=== PATIENT | male | born 1950 | race African-American/Black ===

== ENCOUNTER 2018-04-12 15:00 | Emergency (ER) | payer OTHER ==
[~2018-04-12] VITALS: Ht 175.3 cm; Wt 76.8 kg
[2018-04-12 15:16] VITALS: BP 132/74; PULSE 77; RESP 18; TEMP 98; O2SAT 100
[2018-04-12] MEDS ORDERED: RISP2TAB37 PO (15:29)
[2018-04-12 15:59] LABS: AUTOMATED NEUTROPHIL # 3.3 TH/MM3 (1.8-7.7); BASOPHIL % 0.3 % (0.0-2.0); EOSINOPHIL # 0.1 TH/MM3 (0-0.4); HEMATOCRIT 34.2 % (39.0-51.0); HEMOGLOBIN 11.6 GM/DL (13.0-17.0); LYMPH % 32.4 % (9.0-44.0); LYMPHOCYTE # 1.9 TH/MM3 (1.0-4.8); MEAN CELL VOLUME 82.2 FL (80.0-100.0); MEAN CORPUSCULAR HEMOGLOBIN 27.9 PG (27.0-34.0); MEAN CORPUSCULAR HGB CONC 33.9 % (32.0-36.0); MEAN PLATELET VOLUME 6.2 FL (7.0-11.0); MONO % 9.3 % (0.0-8.0); MONOCYTE # 0.5 TH/MM3 (0-0.9); PLATELET COUNT 311 TH/MM3 (150-450); RED BLOOD COUNT 4.16 MIL/MM3 (4.50-5.90); RED CELL DISTRIBUTION WIDTH 13.4 % (11.6-17.2); WHITE BLOOD COUNT 5.9 TH/MM3 (4.0-11.0)
[2018-04-12 16:17] LABS: ALBUMIN 3.6 GM/DL (3.4-5.0); ALT (GPT) 42 U/L (12-78); AST (GOT) 26 U/L (15-37); BICARBONATE 26.1 MEQ/L (21.0-32.0); BLOOD UREA NITROGEN 31 MG/DL (7-18); CHLORIDE 104 MEQ/L (98-107); CREATININE 1.47 MG/DL (0.60-1.30); GLOMERULAR FILTRATION RATE 58 ML/MIN (>89); GLUCOSE,RANDOM 144 MG/DL (74-106); SODIUM (NA) 138 MEQ/L (136-145)
[2018-04-12 16:27] LABS: ALKALINE PHOSPHATASE 91 U/L (45-117); TOTAL BILIRUBIN ADULT 0.3 MG/DL (0.2-1.0); TOTAL PROTEIN 7.8 GM/DL (6.4-8.2)
[2018-04-12] MEDS ORDERED: AMLO5TAB2 PO (16:31)
[2018-04-12] MEDS ORDERED: GLIM4TAB PO (16:31)
[2018-04-12] MEDS ORDERED: LOSA50TA PO (16:31)
[2018-04-12] MEDS ORDERED: ATOR40TA16 PO (16:31)
--- NOTE | 2018-04-12 17:10 | PD ---
HPI Chief Complaint: Psychiatric Symptoms Time Seen by Provider: 15:20 Travel History International Travel<30 days: No Contact w/Intl Traveler<30days: No Traveled to known affect area: No History of Present Illness HPI 68 YO M presents to the ED for voluntary psychiatric evaluation. Patient states "I am pretty sure I have a mental illness." He is A and O 4. He denies any somatic complaints. He denies suicidal or homicidal ideation. He denies auditory or visual hallucinations. Apparently the patient was being seen at [facility] but was sent to the ED for evaluation due to an episode of fecal incontinence. [facility] states the patient is beyond the scope of care. PFSH Past Medical History Medical History: Unable to Obtain Psychiatric: Yes Tetanus Vaccination: < 5 Years Past Surgical History Surgical History: Unable to Obtain Social History Alcohol Use: No Tobacco Use: No Substance Use: No () Allergies-Medications (Allergen,Severity, Reaction): Coded Allergies: No Known Allergies (Unverified , 04/12/18) Reported Meds & Prescriptions Reported Meds & Active Scripts Active Reported Atorvastatin (Atorvastatin Calcium) 40 Mg Tab 40 Mg PO HS Losartan (Losartan Potassium) 50 Mg Tab 50 Mg PO DAILY Glimepiride 4 Mg Tab 4 Mg PO DAILY Take with breakfast or first main meal Amlodipine (Amlodipine Besylate) 5 Mg Tab 5 Mg PO DAILY Risperdal (Risperidone) 2 Mg Tab 2 Mg PO Q12HR Review of Systems Except as stated in HPI: all other systems reviewed are Neg Physical Exam Narrative GENERAL: Well-nourished, well-developed -[place] male no acute distress. PSYCH: Anxious, cooperative. SKIN: Focused skin assessment warm/dry. HEAD: Normocephalic. EYES: No scleral icterus. No injection or drainage. NECK: Supple, trachea midline. No JVD or lymphadenopathy. CARDIOVASCULAR: Regular rate and rhythm without murmurs, gallops, or rubs. RESPIRATORY: Breath sounds clear and equal bilaterally. No accessory muscle use. GASTROINTESTINAL: Abdomen soft, non-tender, nondistended. Active bowel sounds. MUSCULOSKELETAL: No cyanosis, or edema. Moves extremities spontaneously. Noted to walk with a normal gait. BACK: Nontender without obvious deformity. No CVA tenderness. Data Data Last Documented VS Vital Signs Date Time Temp Pulse Resp B/P (MAP) Pulse Ox O2 Delivery O2 Flow Rate FiO2 04/13/18 05:00 88 20 117/65 (82) 98 Room Air 04/13/18 00:00 98.0 Orders Orders Complete Blood Count With Diff (04/12/18 15:20) Comprehensive Metabolic Panel (04/12/18 15:20) Thyroid Stimulating Hormone (04/12/18 15:20) Psych Screen (04/12/18 15:20) Drug Screen, Random Urine (04/12/18 15:20) Alcohol (Ethanol) (04/12/18 15:20) Diet Diabetic (04/12/18 Dinner) Diet Regular Basic (04/13/18 Breakfast) Diet Regular Basic (04/13/18 Lunch) Ed Discharge Order (04/13/18 13:36) Labs Laboratory Tests Test 04/12/18 15:45 04/12/18 16:20 White Blood Count 5.9 TH/MM3 Red Blood Count 4.16 MIL/MM3 Hemoglobin 11.6 GM/DL Hematocrit 34.2 % Mean Corpuscular Volume 82.2 FL Mean Corpuscular Hemoglobin 27.9 PG Mean Corpuscular Hemoglobin Concent 33.9 % Red Cell Distribution Width 13.4 % Platelet Count 311 TH/MM3 Mean Platelet Volume 6.2 FL Neutrophils (%) (Auto) 56.0 % Lymphocytes (%) (Auto) 32.4 % Monocytes (%) (Auto) 9.3 % Eosinophils (%) (Auto) 2.0 % Basophils (%) (Auto) 0.3 % Neutrophils # (Auto) 3.3 TH/MM3 Lymphocytes # (Auto) 1.9 TH/MM3 Monocytes # (Auto) 0.5 TH/MM3 Eosinophils # (Auto) 0.1 TH/MM3 Basophils # (Auto) 0.0 TH/MM3 CBC Comment DIFF FINAL Differential Comment Blood Urea Nitrogen 31 MG/DL Creatinine 1.47 MG/DL Random Glucose 144 MG/DL Total Protein 7.8 GM/DL Albumin 3.6 GM/DL Calcium Level 9.0 MG/DL Alkaline Phosphatase 91 U/L Aspartate Amino Transf (AST/SGOT) 26 U/L Alanine Aminotransferase (ALT/SGPT) 42 U/L Total Bilirubin 0.3 MG/DL Sodium Level 138 MEQ/L Potassium Level 4.5 MEQ/L Chloride Level 104 MEQ/L Carbon Dioxide Level 26.1 MEQ/L Anion Gap 8 MEQ/L Estimat Glomerular Filtration Rate 58 ML/MIN Thyroid Stimulating Hormone 3rd Gen 1.110 uIU/ML Ethyl Alcohol Level LESS THAN 3 MG/DL Urine Opiates Screen NEG Urine Barbiturates Screen NEG Urine Amphetamines Screen NEG Urine Benzodiazepines Screen NEG Urine Cocaine Screen NEG Urine Cannabinoids Screen NEG MDM Medical Decision Making Medical Screen Exam Complete: Yes Emergency Medical Condition: Yes Differential Diagnosis Adjustment disorder versus anxiety versus bipolar versus depression versus dementia versus electrolyte disorder versus malingering versus mood disorder versus ODD versus psychosis versus PTSD versus schizophrenia versus schizoaffective disorder versus substance-induced mood disorder versus other Narrative Course 68 YO M presents to the ED for voluntary psychiatric evaluation. Patient states "I am pretty sure I have a mental illness." He is A and O 4. He denies any somatic complaints. He denies suicidal or homicidal ideation. He denies auditory or visual hallucinations. Apparently the patient was being seen at [facility] but was sent to the ED for evaluation due to an episode of fecal incontinence. [facility] states the patient is beyond the scope of care. Vitals reviewed. On physical exam the patient is anxious but exam is otherwise reassuring. States patient is compliant with risperidone. CBC is unremarkable. BUN 31, creatinine 1.47. denies any kidney issues. Patient will be allowed to orally rehydrate. Will re-check creatinine. No culture indicated of the UA. Tox and urine drug screen negative. Patient is medically clear for psychiatric evaluation. 04/14/2018: 1:37 PM. Patient was evaluated by Lulú Trinh, waste machine tender. He is deemed safe for discharge from a psychiatric standpoint. Call is made to the patient's . She has no problems with him coming home. Plan is for the patient to follow-up with his outpatient psychiatric resources. He is stable and discharged home. Diagnosis Primary Impression: Medical clearance for psychiatric admission Additional Impression: Schizoaffective disorder, bipolar type Referrals: [facility] Additional Instructions: Rest, hydrate. Resume at home medications as previously prescribed. Return to the ED for any urgent or emergent medical condition. Ella Ribera April 12, 2018 17:09
[2018-04-13] VITALS: BP 144/70; PULSE 88; RESP 20; TEMP 98; O2SAT 98
[2018-04-13 05:00] VITALS: BP 117/65; PULSE 88; RESP 20; O2SAT 98
--- NOTE | 2018-04-13 13:06 | PD ---
History of Present Illness Chief Complaint: Psychiatric Symptoms Time Seen by Provider: 12:30 Travel History International Travel<30 Days: No Contact w/Intl Traveler<30days: No Known affected area: No Legal Status Legal Status: Voluntary History of Present Illness: History of Present Illness HPI Patient is a 68-year-old, -[place]ian, , male with history of schizoaffective disorder, bipolar who presents to the ED for voluntary psychiatric evaluation. As per his paperwork he was admitted to [facility] on April 07 after he was placed under a [place] act for treatment of symptoms of brandon. The patient was started on Risperdal 2 mg twice a day. This morning the patient apparently had a episode of fecal incontinence and he was sent to the ED for medical evaluation. Nurses reported that patient slept very poorly last night. EMR is reviewed. No previous contact with [facility] psychiatry. Patient seen. Patient is awake and alert. He tells me he went to act and then from there they sent him to the crisis unit. He tells me that his felt he was not sleeping enough. He admits that he was not sleeping during the night time and was instead sleeping some during the daytime. At this time the patient does not present evidence of any psychosis, no brandon, no hypomania. There is no suicidal or homicidal ideation, intent or plan. Telephone call to his to obtain collateral information. She confirms history provided by the patient. She also reports that the patient had been stabilized for over 30 years and had been taken Prolixin. In 2014 that medication was discontinued by [facility]. She has no concerns for the patient if he is discharged. She is unable to pick him up and requests if possible to be transported home. [facility] Past Medical History Medical History: Unable to Obtain Psychiatric: Yes Tetanus Vaccination: < 5 Years Past Surgical History Surgical History: Unable to Obtain Psychiatric History Psychiatric History Hx Psychiatric Treatment: Patient with a hx of schizoaffective d/o recently treated at [facility] under a [place] Act per his . Reports his last psychiatric hospitalization was 30 years ago while he was living in [place]. History of Inpatient Treatment: Yes ([facility]) Guns or firearms in home: No Social History . Patient is retired. Hx Alcohol Use: No Hx Tobacco Use: No Hx Substance Use: No Hx of Substance Use Treatment: No Family Psychiatric History Negative Allergies-Medications (Allergen,Severity, Reaction): Coded Allergies: No Known Allergies (Unverified , 04/12/18) Reported Meds & Prescriptions Reported Meds & Active Scripts Active Reported Atorvastatin (Atorvastatin Calcium) 40 Mg Tab 40 Mg PO HS Losartan (Losartan Potassium) 50 Mg Tab 50 Mg PO DAILY Glimepiride 4 Mg Tab 4 Mg PO DAILY Take with breakfast or first main meal Amlodipine (Amlodipine Besylate) 5 Mg Tab 5 Mg PO DAILY Risperdal (Risperidone) 2 Mg Tab 2 Mg PO Q12HR Review of Systems Gastrointestinal: COMPLAINS OF: Diarrhea Psychiatric: DENIES: Anxiety, Confusion, Mood changes, Depression, Hallucinations, Agitation, Suicidal Ideation, Homicidal Ideation, Delusions Except as stated in HPI: all other systems reviewed are Neg Mental Status Examination Appearance: Disheveled Consciousness: Alert Orientation: x4 Motor Activity: Normal gait Speech: Unremarkable Language: Adequate Fund of Knowledge: Adequate Attention and Concentration: Adequate Memory: Unremarkable Mood: Appropriate Affect: Appropriate Thought Process & Associations: Intact, Logical, Goal directed Thought Content: Appropriate Hallucination Type: None Delusion Type: None Suicidal Ideation: No Suicidal Plan: No Suicidal Intention: No Homicidal Ideation: No Homicidal Plan: No Homicidal Intention: No Insight: Fair Judgment: Adequate MDM Medical Decision Making Medical Record Reviewed: Yes Assessment/Plan Patient is a 68-year-old, -[place]ian, , male with history of schizoaffective disorder, bipolar who presents to the ED for voluntary psychiatric evaluation. As per his paperwork he was admitted to [facility] on April 07 after he was placed under a [place] act for treatment of symptoms of brandon. The patient had remained stable on Prolixin until that medication was discontinued in 2014. The patient was started on Risperdal and discharge on 2 mg twice a day. This morning the patient apparently had an episode of fecal incontinence and he was sent to the ED for medical evaluation. At this time the patient does not meet criteria for inpatient psychiatric treatment. He is not manic or hypomanic. He is not psychotic. He is not suicidal or homicidal. I have spoken with his and she has no concerns if he is discharged home. He has an appointment to follow-up at [facility] and has a prescription with his belongings for the Risperdal. Patient is psychiatrically clear for discharge from ED. To follow up with [facility]. Informed . Orders Orders Complete Blood Count With Diff (04/12/18 15:20) Comprehensive Metabolic Panel (04/12/18 15:20) Thyroid Stimulating Hormone (04/12/18 15:20) Psych Screen (04/12/18 15:20) Drug Screen, Random Urine (04/12/18 15:20) Alcohol (Ethanol) (04/12/18 15:20) Diet Diabetic (04/12/18 Dinner) Diet Regular Basic (04/13/18 Breakfast) Diet Regular Basic (04/13/18 Lunch) Results Vital Signs Date Time Temp Pulse Resp B/P (MAP) Pulse Ox O2 Delivery O2 Flow Rate FiO2 04/13/18 05:00 88 20 117/65 (82) 98 Room Air 04/13/18 00:00 98.0 88 20 144/70 (94) 98 Room Air 04/12/18 15:16 98.0 77 18 132/74 (93) 100 Laboratory Tests Test 04/12/18 15:45 04/12/18 16:20 White Blood Count 5.9 Red Blood Count 4.16 Hemoglobin 11.6 Hematocrit 34.2 Mean Corpuscular Volume 82.2 Mean Corpuscular Hemoglobin 27.9 Mean Corpuscular Hemoglobin Concent 33.9 Red Cell Distribution Width 13.4 Platelet Count 311 Mean Platelet Volume 6.2 Neutrophils (%) (Auto) 56.0 Lymphocytes (%) (Auto) 32.4 Monocytes (%) (Auto) 9.3 Eosinophils (%) (Auto) 2.0 Basophils (%) (Auto) 0.3 Neutrophils # (Auto) 3.3 Lymphocytes # (Auto) 1.9 Monocytes # (Auto) 0.5 Eosinophils # (Auto) 0.1 Basophils # (Auto) 0.0 CBC Comment DIFF FINAL Differential Comment Blood Urea Nitrogen 31 Creatinine 1.47 Random Glucose 144 Total Protein 7.8 Albumin 3.6 Calcium Level 9.0 Alkaline Phosphatase 91 Aspartate Amino Transf (AST/SGOT) 26 Alanine Aminotransferase (ALT/SGPT) 42 Total Bilirubin 0.3 Sodium Level 138 Potassium Level 4.5 Chloride Level 104 Carbon Dioxide Level 26.1 Anion Gap 8 Estimat Glomerular Filtration Rate 58 Thyroid Stimulating Hormone 3rd Gen 1.110 Ethyl Alcohol Level LESS THAN 3 Urine Opiates Screen NEG Urine Barbiturates Screen NEG Urine Amphetamines Screen NEG Urine Benzodiazepines Screen NEG Urine Cocaine Screen NEG Urine Cannabinoids Screen NEG Diagnosis Primary Impression: Medical clearance for psychiatric admission Additional Impression: schizoaffective disorder, bipolar type. Psychiatrically Cleared: Yes Med/ Other Pt Specific Info: No Change to Meds Disposition: 01 DISCHARGE HOME Condition: Stable Problem Qualifiers Lulú Trinh April 13, 2018 13:06
[2018-04-13 14:34] VITALS: BP 121/74
== END 2018-04-13 15:59 | disposition home or self-care (01) ==
LOC: NEPD 15:00 → NEDAMB 04-13 15:59
DX: F25.0 Schizoaffective disorder, bipolar type (principal); Z79.899 Other long term (current) drug therapy
CPT/HCPCS: 80053; 80307; 84443; 85025; 99283

== ENCOUNTER 2018-11-22 11:51 | Inpatient (IN) ==
--- NOTE | 2018-11-22 12:18 | ED ---
HPI General Chief Complaint: Psychiatric Symptoms Stated Complaint: psych eval/vcso Time Seen by Provider: 11/22/18 12:12 Source: patient and RN notes reviewed Mode of arrival: ambulatory Limitations: no limitations History of Present Illness HPI Narrative: 68-year-old male presents to the emergency department under [place] act by psychiatric nurse practitioner at [facility]. Patient has history of paranoid schizophrenia. He is a poor historian. He does not know his current medications. He first denies hearing voices or having hallucinations, but then states that he "hears voices when I stand up". He denies any suicidal homicidal ideations. Patient was seen in the emergency department last night and just discharged this tick eradicator. Patient had lab work and CT of the head completed at that time and was given 1 L of IV fluids. CT the head was negative. Moderate severity. MD complaint: Reports other History of same: Yes Relieving factors: none Exacerbating factors: none Associated psychiatric symptoms: Reports auditory hallucinations Associated symptoms: Reports denies other symptoms Treatments prior to arrival: Reports placed on mental health hold Related Data Home Medications Medication Instructions Recorded Confirmed amlodipine 5 mg PO DAILY 11/22/18 11/22/18 aripiprazole 10 mg PO HS 11/22/18 11/22/18 atorvastatin 20 mg PO QPM 11/22/18 11/22/18 glimepiride 4 mg PO QAM 11/22/18 11/22/18 losartan 50 mg PO DAILY 11/22/18 11/22/18 sitagliptin [Januvia] 50 mg PO DAILY 11/22/18 11/22/18 Allergies Allergy/AdvReac Type Severity Reaction Status Date / Time No Known Allergies Allergy Verified 11/22/18 12:01 Review of Systems ROS: all other systems reviewed are negative [facility] Medical History Medical History Diabetes (Acute) Enlarged prostate (Acute) Hypertension (Acute) Schizophrenia (Acute) Surgical History Surgical History No history of previous surgery (Acute) Social History Social History Substance History: No History of Abuse Second Hand Smoke Exposure: No Smoking Status: Never smoker How Often Do You Have a Drink Containing Alcohol: Never Recent Travel in [facility] within the Last 8 Weeks: No Recent Out of Country Travel within the Last 8 Weeks: No Immunization History Tetanus Immunization: Unsure Exam Narrative Exam Narrative: GENERAL: Well-nourished, well-developed male patient, ambulatory. Afebrile. SKIN: Focused skin assessment warm/dry. HEAD: Normocephalic. Atraumatic. EYES: No scleral icterus. No injection or drainage. NECK: Supple, trachea midline. No JVD or lymphadenopathy. CARDIOVASCULAR: Regular rate and rhythm without murmurs, gallops, or rubs. RESPIRATORY: Breath sounds equal bilaterally. No accessory muscle use. Lung sounds are clear to auscultation. GASTROINTESTINAL: Abdomen soft, non-tender, nondistended. MUSCULOSKELETAL: No cyanosis, or edema. PSYCHIATRIC: Patient appears withdrawn, poor historian Course Initial Documented Vital Signs Temperature 98.2 F 11/22/18 12:02 Pulse Rate 102 H 11/22/18 12:02 Respiratory Rate 20 11/22/18 12:02 Blood Pressure 127/86 11/22/18 12:02 Pulse Oximetry 99 11/22/18 12:02 Last Documented Vital Signs Temperature 98.2 F 11/22/18 12:02 Pulse Rate 102 H 11/22/18 12:02 Respiratory Rate 20 11/22/18 12:02 Blood Pressure 127/86 11/22/18 12:02 Pulse Oximetry 99 11/22/18 12:02 Medical Decision Making MDM Narrative Medical decision making narrative: 68-year-old male presents to the emergency department under [place] act by psychiatric nurse practitioner cooper Vargas for psychiatric evaluation. Patient was seen last night and discharged early this morning. I reviewed that visit. CBC showed no acute abnormality. CMP shows slightly elevated BUN and creatinine of 30/2.16. He was given 1 L IV fluid due to this. Ammonia level was 31. Troponin was less than 0.02. UA was negative for acute infection. CT the brain was negative. Patient is medically cleared for psychiatric screening and disposition. Medical Screen Exam Complete: Yes Emergency Medical Condition: Yes Differential Diagnosis Differential Diagnosis: Paranoid schizophrenia versus anxiety versus depression Medical Records Medical records reviewed: Yes I reviewed the patient's medical records. Discharge Plan Discharge Disposition Patient Disposition: ED Admit(ED Internal Use Only) Discharge Condition Condition: Stable Discharge Order Discharge Orders: ED Use Only Admit Order (Routine); Ordered 11/22/18 Ordered By: Obdulia Johnson Discharge Details Diagnosis: Chronic schizophrenia Physicians Team ED Provider: Luis Angel Pollock ED Midlevel Provider: Tahmina Patiño Primary Care Provider: Jazzy Quigley Attending Provider: Clarence Raygoza Discharge Interventions Interventions: Vital Signs Last Done: 11/22/18 12:02 Status ED Status: Admitted Patient
[2018-11-22] MEDS ORDERED: Aluminum/Magnesium/Simethacone Susp 30 ML UDC PO PRN (15:42)
--- NOTE | 2018-11-22 16:22 | ED ---
HPI - Psych - General Source: patient, RN notes reviewed Mode of arrival: ambulatory Limitations: altered mental status - History of Present Illness complaint: altered mental status Onset (ago): day(s) Duration: changing over time, getting worse History of same: Yes Relieving factors: medication Exacerbating factors: none Context: new medication(s) Associated psychiatric symptoms: delusions Associated symptoms: denies other symptoms Treatments prior to arrival: placed on mental health hold - General Chief Complaint: Psychiatric Symptoms Stated Complaint: psych eval/vcso Time Seen by Provider: 11/22/18 12:12 - History of Present Illness HPI Narrative: This is a 68-year-old , -Lib[place] male who presents under a provider initiated Francisco act for schizophrenia. Patient is known to this facility and to the psych department. He was seen earlier at this facility for lower back pain and was treated for kidney dysfunction and discharged home. When he followed up with his [facility] psychiatric nurse practitioner he was found to be disorganized and paranoid and was therefore placed under Francisco act. Reviewed electronic medical record, labs, discussed case with staff. Patient observed wandering the halls in [facility] pod and attempting to exit through the double doors. He reports that "there is nothing wrong with me". He is awake, alert, and oriented to self and place at least. His speech is clear, logical, organized, of normal canes and volume. He appears to be somewhat anxious. He denies being suicidal, homicidal, or experiencing auditory or visual hallucinations. When asked if anyone is out to get him he states, "there is a boy who can verify what is going on[place] Ever since I started working here he has been out to get me." When asked if he would feel the need to defend himself he responds, "I am not a violent person but if her person hurts to the new turn the other cheek". At which time he then becomes tangential about the Bible. He did mention in his rambling tangent "stabbing" but it was unclear whether he would be the one doing the stabbing. Patient reports that he moved to [place] 32 years ago from [place] [employer]. He states that he lives with his . 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 He reports that he completed the sixth grade. He was admitted in February 2018. He reports 1 previous suicidal attempt "many years ago". He denies smoking cigarettes and reports that he quit drinking alcohol and using drugs "many years ago". (Obdulia Johnson) - Related Data Home Medications Medication Instructions Recorded Confirmed amlodipine 5 mg PO DAILY 11/22/18 11/22/18 aripiprazole 10 mg PO HS 11/22/18 11/22/18 atorvastatin 20 mg PO QPM 11/22/18 11/22/18 glimepiride 4 mg PO QAM 11/22/18 11/22/18 losartan 50 mg PO DAILY 11/22/18 11/22/18 sitagliptin [Januvia] 50 mg PO DAILY 11/22/18 11/22/18 Allergies Allergy/AdvReac Type Severity Reaction Status Date / Time No Known Allergies Allergy Verified 11/22/18 12:01 Review of Systems All other systems reviewed negative except as stated in HPI [facility] - History History Provided By: Patient - Medical History Medical History: Medical History (Last Reviewed 11/22/18 @ 16:16 by HEIKE Dawn) Diabetes Enlarged prostate Hypertension Schizophrenia - Surgical History Surgical History: Surgical History (Last Reviewed 11/22/18 @ 16:16 by HEIKE Dawn) No history of previous surgery - Tobacco History Second Hand Smoke Exposure: No Smoking Status: Never smoker - Alcohol History How Often Do You Have a Drink Containing Alcohol: Never - Substance Use History Substance History: No History of Abuse - Travel History Recent Travel in the USA Within the Last 8 Weeks: No Recent Travel Out of the Country Within the Last 8 Weeks: No - Immunization History Tetanus Immunization: Unsure Psychiatric History - Psychiatric History Psychiatric Treatment History: History of Psychiatric Treatment History of Inpatient Treatment: Yes Firearms in Home: No - Psychiatric History Patient has extensive psychiatric history and is established outpatient at [facility]. (Obdulia Johnson) Physical Exam - General Limitations: altered mental status General appearance: alert, anxious - Head Head exam: atraumatic - Neurological Exam Neurological exam: Present: alert - Expanded Neurological Exam Patient oriented to: Present: person, place - Psychiatric Psychiatric exam: Present: anxious - Skin Skin exam: Present: warm, dry Mental Status Examination Appearance: Disheveled Consciousness: Alert Orientation: Person, Place Motor Activity: Other (Shuffling gait) Speech: Hesitant Language: Adequate Fund of Knowledge: Inadequate Attention and Concentration: Easily distracted Memory: Unremarkable Mood: Anxious Affect: Anxious Thought Process & Associations: Tangential Thought Content: Delusional Hallucination Type: None (Denies) Delusion Type: Paranoid Suicidal Ideation: No Suicidal Plan: No Suicidal Intention: No Homicidal Ideation: No Homicidal Plan: No Homicidal Intention: No Insight: Poor Judgment: Impulsive Initial Documented Vital Signs Temperature 98.2 F 11/22/18 12:02 Pulse Rate 102 H 11/22/18 12:02 Respiratory Rate 20 11/22/18 12:02 Blood Pressure 127/86 11/22/18 12:02 Pulse Oximetry 99 11/22/18 12:02 Last Documented Vital Signs Temperature 98.2 F 11/22/18 12:02 Pulse Rate 102 H 11/22/18 12:02 Respiratory Rate 20 11/22/18 12:02 Blood Pressure 127/86 11/22/18 12:02 Pulse Oximetry 99 11/22/18 12:02 MDM - Psych - Diagnosis (1) Paranoid schizophrenia Code(s): F20.0 - Paranoid schizophrenia Status: Acute - MDM Narrative Medical decision making narrative: Given the patient's extensive psychiatric history and his destabilization I am admitting him to locked inpatient psychiatric unit for further evaluation and treatment as deemed necessary. I have spoke to his Lulú via phone and received consent to continue the patient's current psychotropic medication. I will order repeat lab work to check his renal function. (Obdulia Johnson)
[2018-11-22] MEDS: Glimepiride 4 MG Tablet PO SCH (18:26)
[2018-11-22] MEDS: ARIPiprazole 10 MG Tablet PO SCH (21:19)
[2018-11-23 07:00] LABS: Calcium 8.7 mg/dL (8.5-10.1); Carbon Dioxide 25.4 meq/L (21.0-32.0); Potassium 4.2 meq/L (3.5-5.1)
[2018-11-23 07:04] LABS: Chol/HDL Ratio 2.24 Ratio; HDL Cholesterol 50.8 mg/dL (40.0-60.0)
[2018-11-23] MEDS: amLODIPine 5 MG Tablet PO SCH (09:10)
[2018-11-23] MEDS: Glimepiride 4 MG Tablet PO SCH (09:10)
--- NOTE | 2018-11-23 14:07 | P.HPPSY ---
Provisional Diagnosis Admission Date: November 23, 2018 13:40 HPI Patient is a 68-year-old black male referred by Flaco Vargas NP because the patient is not taking his medicines beginning to show signs of decompensation with some paranoid ideas, hearing voices difficulty communicating. Patient is seen today with his staff nurse and found to be confused only aware of his name able to identify place. With much effort he was able to give the date is being October 2018 but mumbling 2017 back to 2018. At one point the patient became tearful and repeatedly attempted to lie down in the bed. Vocalizations were difficult to understand and appeared to be almost incoherent at times when he seem more internally preoccupied. Later in the occupational activities room the patient was observed sitting in a chair moving his arms up and down and mumbling listening to music being played on the activities room player. As before the patient seems lost in his own thoughts with no reaction to those around him unless repeatedly addressed. Most of the information obtained was from the recent record. It is known that the patient is being treated for paranoid schizophrenia at [facility] All elements of available records were reviewed and phone call made to patient' s . The called back answer but was driving asked to call when it was safer for her to call. Competence Certification of Person's Competence To Provide Express and Informed Consent I have personally examined Trino Schwarz, a person being served at [facility] on, November 23, 2018 1338. Express and informed consent means consent voluntarily given in writing, by a competent person, after sufficient explanation and disclosure of the subject matter involved to enable the person to make a knowing and willful decision without any element of force, fraud, deceit, duress, or other form of constraint or coercion. This person is 18 years of age or older, is not now known to be incompetent to consent to treatment with a guardian advocate, and does not have a health care surrogate or proxy currently making medical treatment decisions. I have found this person to be one of the following: [] Competent to provide express and informed consent, as defined above, for voluntary admission to this facility and is competent to provide express and informed consent for treatment. He/she has the consistent capacity to make well reasoned, willful, and knowing decisions concerning his or her medical or mental health treatment. The person fully and consistently understands the purpose of the admission for examination/placement and is fully capable of personally exercising all rights assured under [place] [] Incompetent to provide express and informed consent to voluntary admission, and this is incompetent to provide express and informed consent to treatment. The person must be transferred to involuntary status and a petition for a guardian advocate filed with the Circuit Court. [] Refusing to provide express and informed consent to voluntary admission but is competent to provide express and informed consent for treatment. The person must be discharged or transferred to involuntary status. Form shall be completed within 24 hours of a person's arrival at the receiving facility and filed in the clinical record of each person: 1. Admitted on a voluntary basis 2. Permitted to provide express and informed consent to his/her own treatment 3. Allowed to transfer from involuntary to voluntary status 4. Prior to permitting a person to consent to his or her own treatment after having been previously found incompetent to consent to treatment. History of Present Illness Capacity: Lacks capacity - Inpatient Certification I certify that the inpatient services were ordered in accordance with Medicare regulations governing the order. This includes certification that hospital inpatient services are reasonable and necessary and in the case of services not specified as inpatient-only under 42 CFR 419.22(n), that they are appropriately provided as inpatient services in accordance to with the 2-midnight benchmark under 43 CFR 412.3(e) I certify that inpatient psychiatric hospital services are medically necessary. Evaluation and treatment and/or diagnostic testing are expected to improve the patient's condition. The patient needs on a daily basis, active treatment furnished directly by or requiring the supervision of inpatient psychiatric facility personnel. Estimated Total Length of Stay (Days): 5 Plans for Post Hospital Care: Home [facility] - History History Provided By: Patient, Medical Record - Medical History Medical History: Medical History (Last Reviewed 11/22/18 @ 16:16 by HEIKE Dawn) Diabetes Enlarged prostate Hypertension Schizophrenia - Surgical History Surgical History: Surgical History (Last Reviewed 11/22/18 @ 16:16 by HEIKE Dawn) No history of previous surgery - Tobacco History Second Hand Smoke Exposure: No Smoking Status: Never smoker - Alcohol History How Often Do You Have a Drink Containing Alcohol: Never - Substance Use History Substance History: No History of Abuse - Travel History Recent Travel in the USA Within the Last 8 Weeks: No Recent Travel Out of the Country Within the Last 8 Weeks: No - Immunization History Tetanus Immunization: Unsure Hx Influenza Vaccine This Season: No Medications and Allergies Active Medications: Active Medications Al Hydrox/Mg Hydrox/Simethicone (Mag-Al Plus Susp Liq) 30 ml PO Q6H PRN PRN Reason: DYSPEPSIA Al Hydroxide/Mg Hydroxide (Milk Of Magnesia Liq) 30 ml PO Q12H PRN PRN Reason: Mild Constipation Amlodipine Besylate (Norvasc) 5 mg PO DAILY [facility] Last Admin: 11/23/18 09:10 Dose: 5 mg Aripiprazole (Abilify) 10 mg PO HS [facility] Last Admin: 11/22/18 21:19 Dose: 10 mg Atorvastatin Calcium (Lipitor) 20 mg PO QPM [facility] Last Admin: 11/22/18 18:26 Dose: 20 mg Diphenhydramine HCl (Benadryl) 50 mg PO HS PRN PRN Reason: INSOMNIA Last Admin: 11/22/18 21:17 Dose: 50 mg Glimepiride (Amaryl) 4 mg PO DAILY [facility] Last Admin: 11/23/18 09:10 Dose: 4 mg Hydroxyzine HCl (Atarax) 50 mg PO Q6H PRN PRN Reason: ANXIETY Last Admin: 11/23/18 01:02 Dose: 50 mg Losartan Potassium (Cozaar) 50 mg PO DAILY [facility] Last Admin: 11/23/18 09:10 Dose: 50 mg Sitagliptin Phosphate (Januvia) 50 mg PO DAILY [facility] Last Admin: 11/23/18 09:10 Dose: 50 mg Allergies Allergy/AdvReac Type Severity Reaction Status Date / Time No Known Allergies Allergy Verified 11/22/18 12:01 Home Medications Medication Instructions Recorded Confirmed Type amlodipine 5 mg PO DAILY 11/22/18 11/22/18 History aripiprazole 10 mg PO HS 11/22/18 11/22/18 History atorvastatin 20 mg PO QPM 11/22/18 11/22/18 History glimepiride 4 mg PO QAM 11/22/18 11/22/18 History losartan 50 mg PO DAILY 11/22/18 11/22/18 History sitagliptin [Januvia] 50 mg PO DAILY 11/22/18 11/22/18 History Results - Labs CBC & Chem 7: 11/23/18 05:37 Labs: Laboratory Results - last 24 hr 11/23/18 05:37 Sodium 137 Potassium 4.2 Chloride 105 Carbon Dioxide 25.4 Anion Gap 7 BUN 28 H Creatinine 1.86 H Estimated GFR 44 L Random Glucose 82 Calcium 8.7 Triglycerides 125 Cholesterol 114 L LDL Cholesterol, Calc 38 HDL Cholesterol 50.8 Cholesterol/HDL Ratio 2.24 Exam Vital signs: Vital Signs 11/22/18 16:20 11/22/18 17:05 11/22/18 17:38 Temperature 98.3 F 98.5 F Pulse Rate 91 H 82 109 H Respiratory Rate 18 18 18 Blood Pressure 175/94 H 140/79 117/72 Pulse Oximetry 100 98 99 11/23/18 05:54 Temperature 98.6 F Pulse Rate 87 Respiratory Rate 18 Blood Pressure 133/78 Pulse Oximetry 96 Intake & Output 11/22/18 11/23/18 11/23/18 18:59 06:59 18:59 Intake Total 240 / 240 Balance 240 / 240 Weight 77.3 kg Intake: Oral 240 / 240 Other: Weight On Admission 77.3 kg Mental Status Examination Appearance: Disheveled Consciousness: Alert Orientation: Person, Date/Time Motor Activity: Other (Shuffling gait) Speech: Hesitant Language: Perseveration Fund of Knowledge: Inadequate Attention and Concentration: Easily distracted Memory: Impaired Mood: Sad Affect: Sad, Flat, Blunt Thought Process & Associations: Disorganized, Tangential Thought Content: Delusional Hallucination Type: None (Denies) Delusion Type: Paranoid Suicidal Ideation: No Suicidal Plan: No Suicidal Intention: No Homicidal Ideation: No Homicidal Plan: No Homicidal Intention: No Insight: Poor Judgment: Impulsive Assessment and Plan - Plan Plan: Estimated LOS: [7] days Patient will be restarted on his home medications. Repeat efforts to contact the patient's for assistance in detail of his recent behavior and reasons for non compliance Justification for Continued Inpatient Stay: November 23, 2018 Patient is a risk for continued decompensation without aggressive inpatient treatment.
[2018-11-23 16:11] LABS: Hemoglobin A1c 6.6 % (4.3-6.0)
[2018-11-23] MEDS: ARIPiprazole 10 MG Tablet PO SCH (22:13)
[2018-11-24] MEDS: amLODIPine 5 MG Tablet PO SCH (08:38)
[2018-11-24] MEDS: Glimepiride 4 MG Tablet PO SCH (08:38)
--- NOTE | 2018-11-24 11:00 | P.PNPSY ---
Subjective Remarks: November 24, 2018 Subjective: Patient's record reviewed and patient seen with the staff nurse responsible for his care. Information obtained yesterday after the history and physical had been entered from the patient's indicates that the patient had been doing well until a medication changed from risperidone to Abilify was made. The changes were manic behavior and internal preoccupation with this patient arising in 3 AM in the morning and unable to sleep more than 2-3 hours at night. 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 Additionally the patient had little appetite and did not respond to his 's reassurances that was a holiday and he did not have to go to work. All of these changes apparently started about the time that the patient's risperidone medication would have worn off. It is not clear why there was a medication change, but the feels the patient was not improving on the change to Abilify 10 mg a day. The brandon and internal preoccupation continued while the patient actually describing auditory or visual hallucinations to the . The patient continues to exhibit the same symptoms today as well as yesterday. Objective: It was noted yesterday that the patient had some athetoid movements sought to be related to his responding to music, yesterday music in the activities room, but today there is no music except perhaps in the patient's internal milieu. These movements along with a shuffling gait suggests a pseudo- Parkinson's response to the change to Abilify. Mental Status Examination Appearance: Disheveled Consciousness: Alert Orientation: Person Motor Activity: Abnormal gait, Other (Shuffling gait) Speech: Pressured Language: Perseveration (Getting to work) Fund of Knowledge: Inadequate Attention and Concentration: Easily distracted Memory: Impaired Mood: Sad, Manic Affect: Sad, Flat, Blunt Thought Process & Associations: Disorganized, Tangential Thought Content: Delusional Hallucination Type: Auditory Delusion Type: Bizarre Suicidal Ideation: No Suicidal Plan: No Suicidal Intention: No Homicidal Ideation: No Homicidal Plan: No Homicidal Intention: No Insight: Poor Judgment: Impulsive Assessment and Plan - Plan Plan: November 24, 2018 Patient's medication will be increased to 20 mg a day and Cogentin added for pseudo-Parkinson's Justification for Continued Inpatient Stay: November 24, 2018 Patient at risk for decompensation without inpatient management and treatment
--- NOTE | 2018-11-24 12:15 | P.CONPSY ---
Provisional Diagnosis Admission Date: November 22, 2018 15:47 [place] I.: Schizophrenia chronic paranoid History of Present Illness Service: Psychiatry Consult date: 11/24/18 Requesting Physician: Abiel Boyd Reason for Consult: Second opinion petition supporting ReliOn act Primary Care Provider: Jazzy Quigley History of Present Illness: Patient is a 68-year-old -[place]banian male admitted Dr. Boyd service under Francisco act Dr. Boyd is signed first opinion petition supporting Francisco act. I agree. Patient meets criteria for involuntary psychiatric hospitalization under the Francisco act. Thus I will cosign second opinion petition supporting Francisco act. Patient seen by me in day room with floor staff he is alert somewhat confused F [place]ian male some delayed responses noted in the questioning as if responding to internal stimuli. At this time patient does not meet criteria as mentioned above thus I will cosign second opinion petition supporting ReliOn act Review of Systems All other systems reviewed negative except as stated in HPI [facility] - History History Provided By: Patient, Medical Record - Medical History Medical History: Medical History (Last Reviewed 11/24/18 @ 12:12 by Albert Hill MD) Diabetes Enlarged prostate Hypertension Schizophrenia - Surgical History Surgical History: Surgical History (Last Reviewed 11/24/18 @ 12:12 by Albert Hill MD) No history of previous surgery - Social History I have reviewed the patient's Social History: Yes - Tobacco History Second Hand Smoke Exposure: No Smoking Status: Never smoker - Alcohol History How Often Do You Have a Drink Containing Alcohol: Never - Substance Use History Substance History: No History of Abuse - Substance Use Type Alcohol Status: Sustained Remission Route Used: By Mouth Reason for Use: Calm Down, Feels Good Comment: Per patient and his patient has not drank in over 30 years. - Travel History Recent Travel in the [place] Within the Last 8 Weeks: No Recent Travel Out of the Country Within the Last 8 Weeks: No - Immunization History Tetanus Immunization: Unsure Hx Influenza Vaccine This Season: No Medications and Allergies Active Medications: Active Medications Al Hydrox/Mg Hydrox/Simethicone (Mag-Al Plus Susp Liq) 30 ml PO Q6H PRN PRN Reason: DYSPEPSIA Al Hydroxide/Mg Hydroxide (Milk Of Magnesia Liq) 30 ml PO Q12H PRN PRN Reason: Mild Constipation Amlodipine Besylate (Norvasc) 5 mg PO DAILY [facility] Last Admin: 11/24/18 08:38 Dose: 5 mg Aripiprazole (Abilify) 20 mg PO HS [facility] Atorvastatin Calcium (Lipitor) 20 mg PO QPM [facility] Last Admin: 11/23/18 17:41 Dose: 20 mg Benztropine Mesylate (Cogentin) 1 mg PO BID PRN PRN Reason: MUSCLE SPASM Diphenhydramine HCl (Benadryl) 50 mg PO HS PRN PRN Reason: INSOMNIA Last Admin: 11/23/18 22:13 Dose: 50 mg Glimepiride (Amaryl) 4 mg PO DAILY [facility] Last Admin: 11/24/18 08:38 Dose: 4 mg Hydroxyzine HCl (Atarax) 50 mg PO Q6H PRN PRN Reason: ANXIETY Last Admin: 11/24/18 00:56 Dose: 50 mg Losartan Potassium (Cozaar) 50 mg PO DAILY [facility] Last Admin: 11/24/18 08:38 Dose: 50 mg Sitagliptin Phosphate (Januvia) 50 mg PO DAILY [facility] Last Admin: 11/24/18 08:37 Dose: 50 mg Allergies Allergy/AdvReac Type Severity Reaction Status Date / Time No Known Allergies Allergy Verified 11/22/18 12:01 Home Medications Medication Instructions Recorded Confirmed Type amlodipine 5 mg PO DAILY 11/22/18 11/22/18 History aripiprazole 10 mg PO HS 11/22/18 11/22/18 History atorvastatin 20 mg PO QPM 11/22/18 11/22/18 History glimepiride 4 mg PO QAM 11/22/18 11/22/18 History losartan 50 mg PO DAILY 11/22/18 11/22/18 History sitagliptin [Januvia] 50 mg PO DAILY 11/22/18 11/22/18 History Exam Vital signs: Vital Signs 11/23/18 17:28 11/24/18 06:00 Temperature 98.3 F 98.1 F Pulse Rate 85 90 Respiratory Rate 18 18 Blood Pressure 163/81 H 117/77 Pulse Oximetry 96 96 Intake & Output 11/23/18 11/24/18 11/24/18 18:59 06:59 18:59 Intake Total 240 / 240 Balance 240 / 240 Intake: Oral 240 / 240 Narrative: Patient is seen sitting quietly at the table in the dayroom he is in no acute distress, patient in no respiratory distress, no complaints of chest pain or abdominal pain. Patient moving all 4 extremities Mental Status Examination Appearance: Disheveled Consciousness: Alert Orientation: Person Motor Activity: Abnormal gait, Other (Shuffling gait) Speech: Slow Language: Perseveration (Getting to work) Fund of Knowledge: Inadequate Attention and Concentration: Easily distracted Memory: Impaired Mood: Sad, Manic Affect: Other (Decreased range and intensity) Thought Process & Associations: Disorganized, Tangential Thought Content: Delusional Hallucination Type: Auditory Delusion Type: Bizarre Suicidal Ideation: No Suicidal Plan: No Suicidal Intention: No Homicidal Ideation: No Homicidal Plan: No Homicidal Intention: No Insight: Poor Judgment: Poor Assessment and Plan - Assessment (1) Paranoid schizophrenia Code(s): F20.0 - Paranoid schizophrenia Status: Acute - Plan Plan: Patient meets criteria for further assessment of the Francisco act thus I will cosign second opinion petition supporting Francisco act Justification for Continued Inpatient Stay: At this time patient with decompensated placed in a lower level of care Discharge Planning: To be determined perhaps back with family
--- NOTE | 2018-11-24 20:50 | ECG ---
Date Performed: 11/23/2018 Time Performed: 13:06:05 PTAGE: 68 years EKG: Sinus rhythm WITH SINUS ARRHYTHMIA MARKED LEFT AXIS DEVIATION MINIMAL VOLTAGE CRITERIA FOR LVH, CONSIDER NORMAL V ARIANT ABNORMAL ECG PREVIOUS TRACING : 11/22/2018 04.21 DOCTOR: Olga Chawla Interpretating Date/Time 11/24/2018 20:43:14
[2018-11-25] MEDS: amLODIPine 5 MG Tablet PO SCH (09:25)
[2018-11-25] MEDS: Glimepiride 4 MG Tablet PO SCH (09:26)
--- NOTE | 2018-11-25 13:21 | P.PNPSY ---
Subjective Remarks: Reviewed electronic medical records and discussed case with staff. Follow-up was conducted in the hallway with ANDREA Lees present. His nurse reports he has been doing well with none of the reported behaviors observed while on the unit. Patient states he has been sleeping and eating well. He reports that he feels his mood is improved. He denies any side effects from medications. He seems to be somewhat confused during the follow-up exam. Mental Status Examination Appearance: Disheveled Consciousness: Alert Orientation: Person Motor Activity: Abnormal gait, Other (Shuffling gait) Speech: Slow Language: Perseveration (Getting to work) Fund of Knowledge: Inadequate Attention and Concentration: Easily distracted Memory: Impaired Mood: Sad, Manic Affect: Other (Decreased range and intensity) Thought Process & Associations: Disorganized, Tangential Thought Content: Delusional Hallucination Type: Auditory Delusion Type: Bizarre Suicidal Ideation: No Suicidal Plan: No Suicidal Intention: No Homicidal Ideation: No Homicidal Plan: No Homicidal Intention: No Insight: Poor Judgment: Poor Assessment and Plan - Assessment (1) Paranoid schizophrenia Code(s): F20.0 - Paranoid schizophrenia Status: Acute - Plan Plan: Patient will be reevaluated by the attending psychiatrist. Continue with current treatment plan. Justification for Continued Inpatient Stay: Moving this patient to a less restrictive environment would likely result in decompensation.
[2018-11-26] MEDS: Glimepiride 4 MG Tablet PO SCH ×2 (08:55→15:54)
[2018-11-26] MEDS: amLODIPine 5 MG Tablet PO SCH (09:16)
--- NOTE | 2018-11-26 13:13 | P.PNPSY ---
Subjective Remarks: Reviewed electronic medical records and discussed case with staff. Follow-up was conducted in the hallway with LINDY Klein. His nurse advises he has been cooperative and compliant with his treatment. She states that he was endorsing auditory hallucinations earlier. Patient states he has been sleeping and eating well but denies hearing any voices at this time. He denies having any complaints. He does appear to be slightly internally stimulated when observed on the unit. Mental Status Examination Appearance: Disheveled Consciousness: Alert Orientation: Person Motor Activity: Abnormal gait, Other (Shuffling gait) Speech: Slow Language: Perseveration (Getting to work) Fund of Knowledge: Inadequate Attention and Concentration: Easily distracted Memory: Impaired Mood: Sad, Manic Affect: Other (Decreased range and intensity) Thought Process & Associations: Disorganized, Tangential Thought Content: Delusional Hallucination Type: Auditory Delusion Type: Bizarre Suicidal Ideation: No Suicidal Plan: No Suicidal Intention: No Homicidal Ideation: No Homicidal Plan: No Homicidal Intention: No Insight: Poor Judgment: Poor Assessment and Plan - Assessment (1) Paranoid schizophrenia Code(s): F20.0 - Paranoid schizophrenia Status: Acute - Plan Plan: Patient will be reevaluated by the attending psychiatrist. Continue with current treatment plan. Justification for Continued Inpatient Stay: Moving this patient to a less restrictive environment would likely result in decompensation.
[2018-11-27] MEDS: Glimepiride 4 MG Tablet PO SCH (08:47)
[2018-11-27] MEDS: amLODIPine 5 MG Tablet PO SCH (08:47)
--- NOTE | 2018-11-27 10:42 | P.PNPSY ---
Subjective Remarks: November 27, 2028 Electronic records reviewed for progress notes over the weekend. Patient discussed with nurse responsible for his care. There is little to report beyond what was noted in the OUTSIDE INDUSTRIAL SALES REPRESENTATIVE's progress notes from yesterday. Interview with the patient today's shows none of the shuffling gait noted yesterday when I happened to see him in the hallway. Patient is hearing voices. He attempts to respond to questions but appears to be so preoccupied that the inadequate attention he is able to provide causes him to repeat echo questions put to him with out any input on his part. Patient is somewhat agitated but not felt to be exhibiting akathisia, merely kind of pressure inpatient annoyance with the questions and perhaps the internal stimulation from voices. Mental Status Examination Appearance: Disheveled Consciousness: Alert Orientation: Person, Place Motor Activity: Abnormal gait, Other (Shuffling gait) Speech: Slow Language: Perseveration (Getting to work) Fund of Knowledge: Inadequate Attention and Concentration: Easily distracted Memory: Impaired Mood: Sad, Anxious, Manic Affect: Other (Decreased range and intensity) Thought Process & Associations: Disorganized, Tangential Thought Content: Delusional Hallucination Type: Auditory Delusion Type: Bizarre Suicidal Ideation: No Suicidal Plan: No Suicidal Intention: No Homicidal Ideation: No Homicidal Plan: No Homicidal Intention: No Insight: Poor Judgment: Poor Assessment and Plan - Assessment (1) Paranoid schizophrenia Code(s): F20.0 - Paranoid schizophrenia Status: Acute - Plan Plan: Patient will be reevaluated by the attending psychiatrist. Continue with current treatment plan. November 27, 2018 patient is showing no improvement on his current dosage. Abilify will be increased to 30 mg daily tomorrow if there is no improvement today and tomorrow. My concern is that the patient was improving until this weekend and another 3 patients of [facility] seem to have deteriorated over the weekend who were stable or doing better on Tuesday. Justification for Continued Inpatient Stay: November 27, 2018 Patient would decompensate if attempted to treat on a level of less than current inpatient treatment.
[2018-11-28] MEDS: amLODIPine 5 MG Tablet PO SCH (08:31)
[2018-11-28] MEDS: Glimepiride 4 MG Tablet PO SCH (08:31)
--- NOTE | 2018-11-28 12:51 | P.PNPSY ---
Subjective Chief Complaint: Manic episode Remarks: November 28, 2018 subjective: Patient is showing some improvement today for the first time. He does not seem to be as preoccupied with internal stimuli and is able to answer some questions. Patient was interviewed with the staff nurse and records reviewed. It would appear that some of the medication increase has helped improved the patient. Patient remains psychotic however and is had brief moments looking to the side is so hearing another voices and 9. Mental Status Examination Appearance: Appropriate Consciousness: Alert Orientation: Person, Place Motor Activity: Abnormal gait, Other (Shuffling gait) Speech: Slow Language: Perseveration (Getting to work) Fund of Knowledge: Inadequate Attention and Concentration: Easily distracted Memory: Impaired Mood: Sad, Anxious, Manic Affect: Other (Decreased range and intensity) Thought Process & Associations: Disorganized, Tangential Thought Content: Delusional Hallucination Type: Auditory Delusion Type: Bizarre Suicidal Ideation: No Suicidal Plan: No Suicidal Intention: No Homicidal Ideation: No Homicidal Plan: No Homicidal Intention: No Insight: Poor Judgment: Poor Assessment and Plan - Assessment (1) Paranoid schizophrenia Code(s): F20.0 - Paranoid schizophrenia Status: Acute - Plan Plan: Patient will be reevaluated by the attending psychiatrist. Continue with current treatment plan. November 27, 2018 patient is showing no improvement on his current dosage. Abilify will be increased to 30 mg daily tomorrow if there is no improvement today and tomorrow. My concern is that the patient was improving until this weekend and another 3 patients of [facility] seem to have deteriorated over the weekend who were stable or doing better on Tuesday. November 28, 2018 patient shows some improvement with the increase in his dosage to 30 mg of Abilify daily Justification for Continued Inpatient Stay: November 28, 2018 patient remains psychotic and at risk for deep compensation
[2018-11-29] MEDS: Glimepiride 4 MG Tablet PO SCH (09:44)
[2018-11-29] MEDS: amLODIPine 5 MG Tablet PO SCH (09:44)
--- NOTE | 2018-11-29 09:55 | P.PNPSY ---
Subjective Chief Complaint: Manic episode Remarks: November 29, 2018 Subjective: Patient continues to improve. He does not appear to be responding to internal stimuli today. He does however report port getting up at 3 AM but recognizes this happens likely due to his going to bed by 8 PM. When asked why he gets up at 3 AM the patient replied that he likes to read at that time but is difficulty here because he cannot find anything to read. firewall administrator reports the patient less improved than I have observed. RN reports patient at times is internally occupied and talking to himself. Objective: Patient's vitals were reviewed and there is no evidence of spikes of blood pressure. Laboratory values are within expected range. Review of Systems November 29, 2018 ROS: Patient reports no new physical symptoms. Patient denies dystonia. There is no change in his gait. He reports boredom because he has nothing to read. Mental Status Examination Appearance: Appropriate Consciousness: Alert Orientation: Person, Place, Date/Time Motor Activity: Normal gait (No signs of the area leading her reported shuffling gait) Speech: Slow Language: Adequate Fund of Knowledge: Adequate Attention and Concentration: Adequate Memory: Impaired (Appears to be sundowning in the late afternoon) Mood: Sad Affect: Blunt Thought Process & Associations: Intact Thought Content: Appropriate Hallucination Type: Auditory (Does not appear in the early a.m. to be internally preoccupied) Delusion Type: None (Absent at the time of morning interview) Suicidal Ideation: No Suicidal Plan: No Suicidal Intention: No Homicidal Ideation: No Homicidal Plan: No Homicidal Intention: No Insight: Poor Judgment: Poor Mental Status Exam Remarks: November 29, 2018 Nursing staff reports some agitation and mental status during the afternoon. Assessment and Plan - Assessment (1) Paranoid schizophrenia Code(s): F20.0 - Paranoid schizophrenia Status: Acute - Plan Plan: Patient will be reevaluated by the attending psychiatrist. Continue with current treatment plan. November 27, 2018 patient is showing no improvement on his current dosage. Abilify will be increased to 30 mg daily tomorrow if there is no improvement today and tomorrow. My concern is that the patient was improving until this weekend and another 3 patients of [facility] seem to have deteriorated over the weekend who were stable or doing better on Tuesday. November 28, 2018 patient shows some improvement with the current dosage of 20 mg of Abilify daily. November 29, 2018 patient continues showing improvement on his dosage of Abilify. Justification for Continued Inpatient Stay: November 29, 2018 patient may be close to baseline will consider discharge in the a.m. if improvement continues. Early discharge puts the patient at risk of decompensation
[2018-11-30] MEDS: amLODIPine 5 MG Tablet PO SCH (08:49)
[2018-11-30] MEDS: Glimepiride 4 MG Tablet PO SCH (08:49)
[2018-12-01] MEDS: Glimepiride 4 MG Tablet PO SCH (09:30)
[2018-12-01] MEDS: amLODIPine 5 MG Tablet PO SCH (09:31)
--- NOTE | 2018-12-01 09:42 | P.PNPSY ---
Subjective Chief Complaint: Manic episode Remarks: December 01, 2018 Subjective patient continues to improve. He continues to become somewhat agitated at night and I have asked the nursing staff to leave the lights on until 9 PM. Patient is far better organized today and some of the echolalia that I noted after making my note and revisiting the patient yesterday was not present today. It would seem that the patient had been under a great deal of pressure signing voluntary and had regressed briefly. There is no evidence of problems with his gait today. Nursing staff reports no EPS. Review of Systems December 01, 2018 patient denies somatic complaints. He continues to seem a bit restless but not anxious. Mental Status Examination Appearance: Appropriate Consciousness: Alert Orientation: Person, Place, Date/Time Motor Activity: Normal gait (No signs of the area leading her reported shuffling gait) Speech: Slow Language: Adequate Fund of Knowledge: Adequate Attention and Concentration: Adequate Memory: Impaired (Appears to be sundowning in the late afternoon) Mood: Sad Affect: Blunt Thought Process & Associations: Intact Thought Content: Appropriate Delusion Type: None (Absent at the time of morning interview) Suicidal Ideation: No Suicidal Plan: No Suicidal Intention: No Homicidal Ideation: No Homicidal Plan: No Homicidal Intention: No Insight: Poor Judgment: Poor Assessment and Plan - Assessment (1) Paranoid schizophrenia Code(s): F20.0 - Paranoid schizophrenia Status: Acute - Plan Plan: Patient will be reevaluated by the attending psychiatrist. Continue with current treatment plan. November 27, 2018 patient is showing no improvement on his current dosage. Abilify will be increased to 30 mg daily tomorrow if there is no improvement today and tomorrow. My concern is that the patient was improving until this weekend and another 3 patients of [facility] seem to have deteriorated over the weekend who were stable or doing better on Tuesday. November 28, 2018 patient shows some improvement with the current dosage of 20 mg of Abilify daily. November 29, 2018 patient continues showing improvement on his dosage of Abilify. December 01, 2018 patient continues to show improvement on his current medication Justification for Continued Inpatient Stay: December 01, 2018 patient is at risk for decompensation with discharge to a lower level care at this time but should be ready by Tuesday.
[2018-12-01] MEDS ORDERED: Acetaminophen 325 MG Tablet PO PRN (11:59)
[2018-12-02] MEDS: amLODIPine 5 MG Tablet PO SCH (08:42)
[2018-12-02] MEDS: Glimepiride 4 MG Tablet PO SCH (08:42)
--- NOTE | 2018-12-02 12:52 | P.PNPSY ---
Subjective Chief Complaint: Manic episode Remarks: Patient was seen and case discussed with nursing. Patient continues in good behavior. He is mildly paranoid throughout the day when medications are being distributed. Pleasant and cooperative during the exam. At this time he denies auditory or visual hallucinations. Compliant with medications. Eating and sleeping well Review of Systems All other systems reviewed negative except as stated in HPI Mental Status Examination Appearance: Appropriate Consciousness: Alert Orientation: Person, Place, Date/Time Motor Activity: Normal gait (No signs of the area leading her reported shuffling gait) Speech: Slow Language: Adequate Fund of Knowledge: Adequate Attention and Concentration: Adequate Memory: Impaired (Appears to be sundowning in the late afternoon) Mood: Sad Affect: Blunt Thought Process & Associations: Intact Thought Content: Appropriate Hallucination Type: Auditory (Does not appear in the early a.m. to be internally preoccupied) Delusion Type: None (Absent at the time of morning interview) Suicidal Ideation: No Suicidal Plan: No Suicidal Intention: No Homicidal Ideation: No Homicidal Plan: No Homicidal Intention: No Insight: Poor Judgment: Poor Assessment and Plan - Assessment (1) Paranoid schizophrenia Code(s): F20.0 - Paranoid schizophrenia Status: Acute - Plan Plan: Continue current treatment plan Justification for Continued Inpatient Stay: Patient would decompensate in a less restrictive setting
[2018-12-03] MEDS: Glimepiride 4 MG Tablet PO SCH (09:24)
[2018-12-03] MEDS: amLODIPine 5 MG Tablet PO SCH (09:24)
--- NOTE | 2018-12-03 18:22 | P.PNPSY ---
Subjective Chief Complaint: Manic episode Remarks: Reviewed electronic medical records and discussed case with staff. Follow-up was conducted in the patient's room with ANDREA Platt present. She reports that the patient has been guarded and paranoid. She states that he questions his medications but ultimately is compliant with them. He reports that he is " doing fine". States that he is sleeping well and that his appetite's been good. He reports that he feels his mood is "stable". Then goes off on a bit of a tangent stating that "everybody assumes what I read I just want to be by myself and they can ask me what I read". He relates that he cannot take all the noise on the unit and so remained seclusive to his room. When asked if he feels that anyone is out to get him he states "not really". Mental Status Examination Appearance: Appropriate Consciousness: Alert Orientation: Person, Place, Date/Time Motor Activity: Normal gait (No signs of the area leading her reported shuffling gait) Speech: Slow Language: Adequate Fund of Knowledge: Adequate Attention and Concentration: Adequate Memory: Impaired (Appears to be sundowning in the late afternoon) Mood: Sad Affect: Blunt Thought Process & Associations: Intact Thought Content: Appropriate Hallucination Type: Auditory (Does not appear in the early a.m. to be internally preoccupied) Delusion Type: None (Absent at the time of morning interview) Suicidal Ideation: No Suicidal Plan: No Suicidal Intention: No Homicidal Ideation: No Homicidal Plan: No Homicidal Intention: No Insight: Poor Judgment: Poor Assessment and Plan - Assessment (1) Paranoid schizophrenia Code(s): F20.0 - Paranoid schizophrenia Status: Acute - Plan Plan: Patient will be reevaluated by the attending psychiatrist. Continue with current treatment plan. Justification for Continued Inpatient Stay: Moving this patient to a less restrictive environment would likely result in decompensation..
[2018-12-04 05:34] VITALS: BP 117/67; PULSE 84; RESP 16; TEMP 97.5; O2SAT 96
[2018-12-04] MEDS: amLODIPine 5 MG Tablet PO SCH (08:46)
[2018-12-04] MEDS: Glimepiride 4 MG Tablet PO SCH (08:47)
--- NOTE | 2018-12-04 14:56 | P.DSPSY ---
Psychiatry Discharge Summary Inpatient Psychiatric care?: Yes Advance Directives: Yes Mental Health Advance Directive: No Health Care Proxy: No - Admission Admission Date: November 22, 2018 15:47 Brief History: December 04, 2018 Brief history patient is 68-year-old black male who was admitted acutely manic and experiencing auditory hallucinations. 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 Patient was experiencing extreme insomnia. He awakened at 3 AM and read until it was time for him to go to work. He presented with almost total preoccupation with internal stimuli and restlessness and a kind of shuffling gait with rhythmic movements of his arms and legs as though he expressed it: "Responding to the rhythm in his body." The patient has a history of schizoaffective disorder bipolar type and has been treated successfully in the past with 10 mg of Abilify. Tobacco Use In Past 30 Days: Yes How Often Do You Have a Drink Containing Alcohol: Never Hospital Course: December 04, 2018 Patient's course was marked by some improvement only after the dosage of Abilify was increased to 20 mg a day. At that dosage he has been experiencing some improvement for about 4 days. Prior to that time he was totally preoccupied with internal stimuli and was not able to respond appropriately to questions put to him. The patient began listening about 4 days ago and did not seem so completely preoccupied with what he was hearing internally. This improvement continued until today he appears much improved and ready for discharge. - Discharge Discharge Date: 12/04/18 Discharge Disposition: Home - Discharge Instructions Discharge Diet: Heart Healthy Diet Activities You Can Perform: Regular- No Restrictions - Discharge Time > 30 minutes Mental Status Examination Appearance: Appropriate Consciousness: Alert Orientation: Person, Place, Date/Time Motor Activity: Normal gait (No signs of the area leading her reported shuffling gait) Speech: Slow Language: Adequate Fund of Knowledge: Adequate Attention and Concentration: Adequate Memory: Impaired (Appears to be sundowning in the late afternoon) Mood: Sad Affect: Blunt Thought Process & Associations: Intact Thought Content: Appropriate Hallucination Type: Auditory (Does not appear in the early a.m. to be internally preoccupied) Delusion Type: None (Absent at the time of morning interview) Suicidal Ideation: No Suicidal Plan: No Suicidal Intention: No Homicidal Ideation: No Homicidal Plan: No Homicidal Intention: No Insight: Poor Judgment: Poor Discharge/Advance Care Plan - Results Vital Signs: Last Vital Signs Temp 97.5 F L 12/04/18 05:33 Pulse 84 12/04/18 05:33 Resp 16 12/04/18 05:33 BP 117/67 12/04/18 05:33 Pulse Ox 96 12/04/18 05:33 Lab Results: Laboratory Results Hemoglobin A1c 6.6 % (4.3-6.0) H 11/23/18 05:37 Triglycerides 125 mg/dL (42-150) 11/23/18 05:37 Cholesterol 114 mg/dL (120-200) L 11/23/18 05:37 LDL Cholesterol, Calc 38 mg/dL (0-99) 11/23/18 05:37 HDL Cholesterol 50.8 mg/dL (40.0-60.0) 11/23/18 05:37 Summary of Procedures: None Pending Results: None - Medications Number of antipsychotic medications at discharge: 1 - Discharge Care Plan Goals to Promote Your Health: * To prevent worsening of your condition and complications * To maintain your health at the optimal level Directions to Meet Your Goals: Take your medications as prescribed Follow your dietary instruction Follow activity as directed Keep your appointments as scheduled Take your immunizations and boosters as scheduled If your symptoms worsen call your PCP, if no PCP go to Urgent Care Center or Emergency Room For 20/06 questions related to your inpatient stay or results of tests pending at discharge, please contact Dr. Abiel Boyd MD at Smoking is Dangerous to Your Health. Avoid second hand smoking
== END 2018-12-04 16:40 | disposition home or self-care (01) | DRG 885 ==
LOC: NEPJ 11:51 → NEDA 15:47 → H260 16:40
PROVIDERS: ADMIT Psychiatry & Neurology Child & Adolescent Psychiatry; ATTEND Psychiatry & Neurology Child & Adolescent Psychiatry
CPT/HCPCS: 70450; 80048; 80053; 80061; 81001; 82140; 82948; 82962; 83036; 83735; 84484; 85025; 90760; 90791; 93005; 96360; 99285; J7030; Q0163